=== PATIENT | female | born 1940 ===

== ENCOUNTER 2018-07-29 05:50 | Day surgery (SDC) | payer OTHER ==
[~2018-07-29 05:50] MED LIST: ATACAND HCT 321 EAC1 PO; CARDIZEM CD240 MG PO; CRESTOR5 MG PO; FLONASE16 GM; LYRICA300 MG PO; NEXIUM40 M1 PO; PLAVIX75 MG PO; SINGULAIR 4MG4 MG PO; ZYRTEC10 MG PO
== END 2018-07-29 11:35 | disposition home or self-care (01) ==
LOC: CIR.AMB 05:50
DX: M67.843 Other specified disorders of tendon, right hand (principal); M71.341 Other bursal cyst, right hand